=== PATIENT | female | born 1960 | race Two or more races ===

== ENCOUNTER → 2024-09-27 07:54 | Outpatient (CLI) | payer OTHER ==
[~2024-09-27 07:54] MED LIST: GILTUSS TR1 TAB.SR . PO; TERAPIA ALBUTEROL
[2024-09-27 08:52] LABS: HEMATOCRIT 38.3 % (36.0-45.00); HEMOGLOBIN 13.2 g/dL (12.0-15.00); MEAN CELL VOLUME 87.8 fL (80.00-100.00); MEAN CORPUSCULAR HEMOGLOBIN 30.2 pg (27.00-32.0); MEAN CORPUSCULAR HGB CONC 34.4 g/dl (32.0-36.0); RED BLOOD COUNT 4.36 M/uL (4.00-6.00); RED CELL DISTRIBUTION WIDTH 15.5 % (11.5-14.5)
[2024-09-27 08:59] LABS: PH,URINE 6.5 (5.0-8.0); URINE APPEARANCE Clear; URINE BILIRRUBIN Negative (NEGATIVE); URINE BLOOD Negative; URINE COLOR Yellow; URINE GLUCOSE Negative (NEGATIVE); URINE KETONE Negative (NEGATIVE); URINE LEUKOCYTE Negative; URINE NITRATE Negative; URINE PROTEIN Negative (NEGATIVE); URINE UROBILINOGEN 0.2 E.U./dl
[2024-09-27 09:03] LABS: PLATELET COUNT 94 K/uL (150-450); URINE BACTERIA 47.6 uL (0.0-1933); URINE EPITHELIAL CELLS 6.6 uL (0.0-38.8)
[2024-09-27 09:11] LABS: URINE RBC 1.9 uL (0.0-20.8); URINE WBC 0.9 uL (0.0-23.2)
[2024-09-27 10:17] LABS: ALBUMIN 3.6 gm/dL (3.4-5.0); BILIRUBIN TOTAL 0.99 mg/dL (0.3-1.2); CALCIUM 9.1 mg/dL (8.5-10.1); CHOL HDL RATIO 2.8 (0-5.0); CREATININE SERUM 0.62 mg/dL (0.55-1.02); FREE TRIODOTIRONINE 3.2 pg/ml (2.18-3.98); GFR 96.31; GLOBULINA 3.7 G/DL (2.4-3.5); POTASSIUM 4.27 mEq/L (3.5-5.1); T4 FREE 1.17 NG/ML (0.76-1.46); TOTAL PROTEIN 7.3 gm/dL (6.4-8.2); TSH 2.36 uIU/mL (0.358-3.74)
[2024-09-27 15:12] LABS: ob POSITIVE (NEGATIVE)
== END | disposition home or self-care (01) ==
LOC: LAB 07:54
PROVIDERS: ATTEND General Practice
DX: E78.2 Mixed hyperlipidemia (principal); R80.9 Proteinuria, unspecified; R30.0 Dysuria; E03.9 Hypothyroidism, unspecified; E11.69 Type 2 diabetes mellitus with other specified complication; E55.9 Vitamin D deficiency, unspecified; Z12.11 Encounter for screening for malignant neoplasm of colon

== ENCOUNTER 2025-01-20 08:32 | Outpatient (CLI) | payer OTHER ==
[2025-01-20 09:38] LABS: URINE APPEARANCE Clear; URINE BILIRRUBIN Negative (NEGATIVE); URINE BLOOD Negative; URINE COLOR Yellow; URINE GLUCOSE Negative (NEGATIVE); URINE KETONE Negative (NEGATIVE); URINE LEUKOCYTE Negative; URINE NITRATE Negative; URINE PROTEIN Negative (NEGATIVE); URINE UROBILINOGEN 0.2 E.U./dl
[2025-01-20 09:43] LABS: URINE BACTERIA 43.9 uL (0.0-1933); URINE EPITHELIAL CELLS 3.2 uL (0.0-38.8)
[2025-01-20 09:55] LABS: BASO % 0.7 % (0.1-1.2); EOS % 10.1 % (0.7-7.0); HEMATOCRIT 35.6 % (34.1-44.9); HEMOGLOBIN 11.5 g/dL (11.2-15.7); LYMPH # 1.04 (1.18-3.74); LYMPH % 34.9 % (19.3-53.1); MONO # 0.26 (0.24-0.82); MONO % 8.7 % (4.7-12.5); NEUT # 1.36 (1.56-6.13); NEUT % 45.6 % (34.0-71.1); RED CELL DISTRIBUTION WIDTH 19.3 % (11.6-14.4)
[2025-01-20 10:05] LABS: PLATELET COUNT 113 K/uL (163-369)
[2025-01-20 10:17] LABS: URINE RBC 0.5 uL (0.0-20.8); URINE WBC 0.6 uL (0.0-23.2)
[2025-01-20 10:42] LABS: ALBUMIN 3.6 gm/dL (3.4-5.0); BILIRUBIN TOTAL 0.97 mg/dL (0.3-1.2); BILIRUBIN,CONJUGATED 0.3 mg/dL (0.0-0.2); BILIRUBIN,UNCONJUGATED 0.67 mg/dL (0.0-0.6); CALCIUM 8.4 mg/dL (8.5-10.1); CHOL HDL RATIO 2.7 (0-5.0); CREATININE SERUM 0.66 mg/dL (0.55-1.02); GFR 89.6; POTASSIUM 4.48 mEq/L (3.5-5.1); TOTAL PROTEIN 7.4 gm/dL (6.4-8.2); TSH 1.83 uIU/mL (0.358-3.74)
[2025-01-22 07:11] LABS: hav igm Negative (Negative); hcv Non Reactive (Non Reactive); hep b c Negative (Negative); hep b s ag Negative (Negative)
== END 2025-01-20 08:33 | disposition home or self-care (01) ==
LOC: LAB 08:32
PROVIDERS: ATTEND General Practice
DX: E78.5 Hyperlipidemia, unspecified (principal); R30.0 Dysuria; E03.9 Hypothyroidism, unspecified; E11.69 Type 2 diabetes mellitus with other specified complication; R74.01 Elevation of levels of liver transaminase levels

== ENCOUNTER 2025-01-25 09:24 | Outpatient (CLI) | payer OTHER | END 2025-01-25 09:27 | disposition home or self-care (01) | LOC: TOM 09:24 | PROVIDERS: ATTEND General Practice | DX: R10.31 Right lower quadrant pain (principal); R10.11 Right upper quadrant pain | CPT/HCPCS: 74178; Q9965 ==

== ENCOUNTER 2025-05-14 08:35 | Outpatient (CLI) | payer OTHER ==
[2025-05-14 10:47] LABS: BASO % 1.0 % (0.1-1.2); EOS # 0.32 (0.04-0.54); EOS % 10.6 % (0.7-7.0); LYMPH # 0.76 (1.18-3.74); LYMPH % 25.1 % (19.3-53.1); MONO # 0.23 (0.24-0.82); MONO % 7.6 % (4.7-12.5); NEUT # 1.69 (1.56-6.13); NEUT % 55.7 % (34.0-71.1); RED CELL DISTRIBUTION WIDTH 21.7 % (11.6-14.4)
[2025-05-14 11:16] LABS: INR 1.19
[2025-05-14 11:30] LABS: ALT/SGPT 41.0 U/L (12-78); AST/SGOT 47.0 U/L (15-37); BILIRUBIN TOTAL 0.79 mg/dL (0.3-1.2); BUN CREA RATIO 14.0 (7.0-25.0); CREATININE SERUM 0.58 mg/dL (0.55-1.02); FE 18.0 ug/dl (50-170); GFR 104.01; GLOBULINA 4.2 G/DL (2.4-3.5); GLUCOSE FASTING 82.0 mg/dL (65-100); OSMOLALITY SERUM 275.0 MOSM/KG (275-295); TSH 2.06 uIU/mL (0.358-3.74)
[2025-05-17 07:07] LABS: HEPATITIS A ANTIBODY IGG Positive (Negative); HEPATITIS A IGM Negative (Negative); HEPATITIS B CORE IGG Negative (Negative); HEPATITIS B CORE IGM Negative (Negative); HEPATITIS B SURFACE ANTIBODY Non Reactive (.); HEPATITIS C VIRUS ANTIBODY Non Reactive (Non Reactive)
[2025-05-17 09:11] LABS: ALPHA FETO PROTEIN 4.0 ng/mL (0.0-9.2)
== END 2025-05-14 09:22 | disposition home or self-care (01) ==
LOC: LAB 08:35
DX: K74.60 Unspecified cirrhosis of liver (principal)

== ENCOUNTER 2025-05-18 19:15 | Inpatient (IN) | payer OTHER ==
[~2025-05-18] VITALS: Ht 157.5 cm; Wt 77.1 kg
[2025-05-18] MEDS ORDERED: LOSARTAN POTAS100 MG (19:53)
[2025-05-18] MEDS ORDERED: MORPHINE SULFATE 4 MG/ML VIAL IV ONE (20:15)
[2025-05-18] MEDS ORDERED: 0.9 % SODIUM CHLORIDE 1,000 ML IV SCH (20:15)
[2025-05-18 20:42] LABS: BASO % 0.5 % (0.1-1.2); EOS # 0.01 (0.04-0.54); EOS % 0.2 % (0.7-7.0); LYMPH # 0.87 (1.18-3.74); LYMPH % 13.7 % (19.3-53.1); MONO # 0.36 (0.24-0.82); MONO % 5.7 % (4.7-12.5); NEUT # 5.05 (1.56-6.13); NEUT % 79.6 % (34.0-71.1); RED CELL DISTRIBUTION WIDTH 23.0 % (11.6-14.4)
[2025-05-18 21:15] LABS: INR 1.36
[2025-05-18] MEDS ORDERED: PANTOPRAZOLE SODIUM 40 MG in 0.9 % SODIUM CHLORIDE 8 ML IV PUSH STA (21:16)
[2025-05-18 21:24] LABS: ALT/SGPT 35.0 U/L (12-78); AST/SGOT 37.0 U/L (15-37); BILIRUBIN TOTAL 0.72 mg/dL (0.3-1.2); BILIRUBIN,CONJUGATED 0.27 mg/dL (0.0-0.2); BUN CREA RATIO 41.0 (7.0-25.0); CREATININE SERUM 0.68 mg/dL (0.55-1.02); GFR 86.57; GLOBULINA 3.5 G/DL (2.4-3.5); GLUCOSE FASTING 132.0 mg/dL (65-100); OSMOLALITY SERUM 290.0 MOSM/KG (275-295)
[2025-05-18] MEDS ORDERED: OCTREOTIDE ACETATE 1,250 MCG in 0.9 % SODIUM CHLORIDE 250 ML IV SCH (21:30)
[2025-05-18] MEDS ORDERED: PANTOPRAZOLE SODIUM 80 MG in 0.9 % SODIUM CHLORIDE 100 ML IV SCH (21:30)
[2025-05-18 21:49] LABS: ABG PH 7.462 (7.35-7.45); ABG PO2 116.6 mmHg (80-100); BICARBONATE 20.6 mmol/l (23-25); o2 32 %
[2025-05-19] VITALS (8 sets, daily range): BP systolic 108–165; BP diastolic 59–94; O2SAT 99–100
[2025-05-19] MEDS ORDERED: CEFTRIAXONE SODIUM 2,000 MG in 0.9 % SODIUM CHLORIDE 100 ML IV SCH ×2 (00:12→09:00)
[2025-05-19] MEDS ORDERED: 0.9 % SODIUM CHLORIDE 1,000 ML IV SCH ×3 (00:15→07:30)
[2025-05-19] MEDS ORDERED: ONDANSETRON HCL 4 MG in 0.9 % SODIUM CHLORIDE 50 ML IV PRN ×2 (00:15→07:30)
[2025-05-19 02:12] LABS: URINE APPEARANCE Clear; URINE BILIRRUBIN Negative (NEGATIVE); URINE BLOOD Negative; URINE COLOR Yellow; URINE GLUCOSE Negative (NEGATIVE); URINE KETONE Trace (NEGATIVE); URINE LEUKOCYTE Negative; URINE NITRATE Negative; URINE PROTEIN Negative (NEGATIVE); URINE UROBILINOGEN 0.2 E.U./dl
[2025-05-19 02:15] LABS: URINE BACTERIA 4.7 uL (0.0-1933); URINE EPITHELIAL CELLS 3.5 uL (0.0-38.8); URINE RBC 3.0 uL (0.0-20.8); URINE WBC 2.4 uL (0.0-23.2)
[2025-05-19 02:20] LABS: URINE CAST 0.00 uL (0.0-1.40)
[2025-05-19] MEDS ORDERED: PANTOPRAZOLE SODIUM 80 MG in 0.9 % SODIUM CHLORIDE 100 ML IV SCH (07:30)
[2025-05-19] MEDS ORDERED: LABETALOL HCL 100 MG/20 ML ML IV PRN (10:15)
[2025-05-19] MEDS ORDERED: SODIUM CHLORIDE 0.45 % 1,000 ML IV SCH (10:15)
[2025-05-19] MEDS ORDERED: Cyanocobalamin/Mecobalamin 1 TAB.SL SL NR (10:30)
[2025-05-19] MEDS ORDERED: PHYTONADIONE 10 MG/ML AMPUL IM SCH (12:00)
[2025-05-19] MEDS ORDERED: SOD FERRIC GLUC COMPLX/SUCROSE 62.5 MG/5 ML AMPUL IV SCH (12:00)
[2025-05-19] MEDS ORDERED: ALBUMIN HUMAN-25 0.25GM/ML (50ML) VIAL IV SCH (13:00)
[2025-05-19] MEDS ORDERED: OCTREOTIDE ACETATE 1,250 MCG in 0.9 % SODIUM CHLORIDE 250 ML IV SCH (21:00)
[2025-05-20 04:00] VITALS: BP 145/67; O2SAT 100
[2025-05-20 07:45] VITALS: BP 156/78; O2SAT 92
[2025-05-20] MEDS ORDERED: Cyanocobalamin/Mecobalamin 1 TAB.SL SL SCH (09:00)
[2025-05-20 12:33] LABS: BASO % 0.9 % (0.1-1.2); EOS # 0.31 (0.04-0.54); EOS % 6.9 % (0.7-7.0); LYMPH # 0.75 (1.18-3.74); LYMPH % 16.6 % (19.3-53.1); MONO # 0.34 (0.24-0.82); MONO % 7.5 % (4.7-12.5); NEUT # 3.05 (1.56-6.13); NEUT % 67.7 % (34.0-71.1); RED CELL DISTRIBUTION WIDTH 23.8 % (11.6-14.4)
[2025-05-20 13:43] LABS: ALT/SGPT 31.0 U/L (12-78); AST/SGOT 42.0 U/L (15-37); BILIRUBIN TOTAL 1.45 mg/dL (0.3-1.2); BILIRUBIN,CONJUGATED 0.47 mg/dL (0.0-0.2); BUN CREA RATIO 32.0 (7.0-25.0); CREATININE SERUM 0.68 mg/dL (0.55-1.02); GFR 86.57; GLOBULINA 3.1 G/DL (2.4-3.5); GLUCOSE FASTING 107.0 mg/dL (65-100); OSMOLALITY SERUM 292.0 MOSM/KG (275-295)
[2025-05-20] MEDS ORDERED: PHYTONADIONE 10 MG/ML AMPUL IM SCH (14:00)
[2025-05-20 14:31] LABS: TSH 0.22 uIU/mL (0.358-3.74)
[2025-05-20 14:40] VITALS: BP 133/69; O2SAT 95
[2025-05-20 15:53] VITALS: BP 132/49; O2SAT 97
[2025-05-20] MEDS ORDERED: AMINO ACIDS 1 EACH TABLET PO SCH (17:00)
[2025-05-20 20:00] VITALS: BP 147/75; O2SAT 97
[2025-05-20] MEDS ORDERED: SODIUM CL 0.9% 250 ML IV.SOLN ONE (20:35)
[2025-05-20] MEDS ORDERED: PANTOPRAZOLE SODIUM 40 MG/VIAL VIAL ONE (20:55)
[2025-05-20 23:53] VITALS: BP 157/72; O2SAT 96
[2025-05-21] MEDS ORDERED: PANTOPRAZOLE SODIUM 40 MG/VIAL VIAL ONE (00:46)
[2025-05-21 07:07] VITALS: BP 161/75; O2SAT 96
[2025-05-21 12:00] VITALS: BP 143/68; O2SAT 95
[2025-05-21 15:37] VITALS: BP 150/70; O2SAT 97
[2025-05-21 20:00] VITALS: BP 169/77; O2SAT 100
[2025-05-21] MEDS ORDERED: SODIUM CL 0.9% 250 ML IV.SOLN ONE ×2 (21:59→22:00)
[2025-05-22] VITALS (7 sets, daily range): BP systolic 132–164; BP diastolic 58–87; O2SAT 95–100
[2025-05-22] MEDS ORDERED: ACETAMINOPHEN 500 MG GEL..CAP PO PRN (10:30)
[2025-05-22] MEDS ORDERED: MAGNESIUM HYDROXIDE 30 ML BLIST.PACK PO NR (14:30)
[2025-05-22] MEDS ORDERED: LACTULOSE 20 G/30 ML BLIST.PACK PO NR (14:30)
[2025-05-22] MEDS ORDERED: MINERAL OIL 30 ML BLIST.PACK PO NR (14:30)
[2025-05-22 19:18] LABS: ob POSITIVE (NEGATIVE)
[2025-05-23] VITALS (7 sets, daily range): BP systolic 126–158; BP diastolic 69–97; O2SAT 96–100
[2025-05-23 06:50] LABS: BASO % 0.8 % (0.1-1.2); EOS # 0.37 (0.04-0.54); EOS % 10.3 % (0.7-7.0); LYMPH # 0.71 (1.18-3.74); LYMPH % 19.7 % (19.3-53.1); MONO # 0.37 (0.24-0.82); MONO % 10.3 % (4.7-12.5); NEUT # 2.12 (1.56-6.13); NEUT % 58.9 % (34.0-71.1)
[2025-05-23 07:05] LABS: RED CELL DISTRIBUTION WIDTH 26.9 % (11.6-14.4)
[2025-05-23 07:22] LABS: INR 1.33
[2025-05-23 07:24] LABS: ALT/SGPT 24.0 U/L (12-78); AST/SGOT 29.0 U/L (15-37); BILIRUBIN TOTAL 0.97 mg/dL (0.3-1.2); BUN CREA RATIO 17.0 (7.0-25.0); CREATININE SERUM 0.58 mg/dL (0.55-1.02); GFR 104.01; GLOBULINA 2.8 G/DL (2.4-3.5); GLUCOSE FASTING 94.0 mg/dL (65-100); OSMOLALITY SERUM 287.0 MOSM/KG (275-295)
[2025-05-23] MEDS ORDERED: CHLORHEXIDINE GLUCONATE 120 ML BOTTLE TOP ONE (08:54)
[2025-05-23] MEDS ORDERED: PROPRANOLOL HCL 10 MG TABLET PO SCH (09:00)
[2025-05-23 21:16] LABS: GLU PERITONEAL FLUID 116.0 mg/dl; LDH PERITONEAL FLUID 64.0 U/L; TP PERITONEAL FLUID 1.6 g/dl
[2025-05-24 00:36] VITALS: BP 136/74; O2SAT 100
[2025-05-24 10:35] LABS: ALPHA FETO PROTEIN 3.2 ng/mL (0.0-9.2); hav igm Negative (Negative); hep b c Negative (Negative); hep b s ag Negative (Negative)
[2025-05-24 17:17] VITALS: BP 115/57; O2SAT 98
[2025-05-25 00:52] VITALS: BP 131/67; O2SAT 95
[2025-05-25 07:57] LABS: BASO % 1.1 % (0.1-1.2); EOS # 0.55 (0.04-0.54); EOS % 9.8 % (0.7-7.0); LYMPH # 1.24 (1.18-3.74); LYMPH % 22.2 % (19.3-53.1); MONO # 0.57 (0.24-0.82); MONO % 10.2 % (4.7-12.5); NEUT # 3.15 (1.56-6.13); NEUT % 56.3 % (34.0-71.1)
[2025-05-25 08:02] LABS: RED CELL DISTRIBUTION WIDTH 28.9 % (11.6-14.4)
[2025-05-25 09:01] LABS: BUN CREA RATIO 18.0 (7.0-25.0); CREATININE SERUM 0.49 mg/dL (0.55-1.02); GFR 126.35; GLUCOSE FASTING 76.0 mg/dL (65-100); OSMOLALITY SERUM 282.0 MOSM/KG (275-295)
[2025-05-25] MEDS ORDERED: PROPRANOLOL HCL10 MG PO (11:32)
[2025-05-25] MEDS ORDERED: Neurin-Sl Tablet Sl SL (11:33)
[2025-05-25] MEDS ORDERED: ENULOSE10 GM/15 M PO (11:33)
[2025-05-25] MEDS ORDERED: PRE PROTEIN1 EACH PO (11:33)
[2025-05-25] MEDS ORDERED: ATACAND16 MG PO (11:34)
[2025-05-25] MEDS ORDERED: VITAMIN K100 MCG PO (11:34)
[2025-05-25] MEDS ORDERED: CEFDINIR300 MG PO (11:34)
[2025-05-25] MEDS ORDERED: URSODIOL200 MG PO (11:40)
[2025-05-25] MEDS ORDERED: ACTOS15 MG PO (11:40)
[2025-05-25] MEDS ORDERED: CARAFATE1 GM/10 ML PO (11:42)
[2025-05-25 13:12] LABS: ANTI MITOCHONDRIAL ANTIBODIES < 20.0 Units (0.0-20.0); SMOOTH MUSCLE ANTIBODY 8 Units (0-19)
== END 2025-05-25 15:53 | disposition home or self-care (01) | DRG 378 ==
LOC: ER 19:15 → ICU 05-19 00:49 → ICU-2 05-19 01:11 → ICU 05-19 03:42 → SURH 05-23 17:10
PROVIDERS: General Practice; Internal Medicine; Internal Medicine Infectious Disease; ADMIT Internal Medicine; ATTEND Internal Medicine
PROC: BW40ZZZ Ultrasonography of Abdomen (ICD-10-PCS; 2025-05-19)
PROC: BW21YZZ Computerized Tomography (CT Scan) of Abdomen and Pelvis using Other Contrast (ICD-10-PCS; 2025-05-19)
PROC: B24BYZZ Ultrasonography of Heart with Aorta using Other Contrast (ICD-10-PCS; 2025-05-19)
PROC: 30233N1 Transfusion of Nonautologous Red Blood Cells into Peripheral Vein, Percutaneous Approach (ICD-10-PCS; 2025-05-19)
PROC: 0W9G3ZZ Drainage of Peritoneal Cavity, Percutaneous Approach (ICD-10-PCS; principal; 2025-05-23)
DX: K92.0 Hematemesis (principal); R18.8 Other ascites; D64.9 Anemia, unspecified; K74.60 Unspecified cirrhosis of liver; D69.6 Thrombocytopenia, unspecified

== ENCOUNTER 2025-06-13 09:27 | Outpatient (CLI) | payer OTHER ==
[~2025-06-13 09:27] MED LIST changes: +ACTOS15 MG PO; +ATACAND16 MG PO; +CARAFATE1 GM/10 ML PO; +CEFDINIR300 MG PO; +ENULOSE10 GM/15 M PO; +LOSARTAN POTAS100 MG; +Neurin-Sl Tablet Sl SL; +PRE PROTEIN1 EACH PO; +PROPRANOLOL HCL10 MG PO; +URSODIOL200 MG PO; +VITAMIN K100 MCG PO
[2025-06-13 11:19] LABS: BASO % 1.3 % (0.1-1.2); EOS # 0.47 (0.04-0.54); LYMPH # 0.79 (1.18-3.74); LYMPH % 25.7 % (19.3-53.1); MONO # 0.29 (0.24-0.82); MONO % 9.4 % (4.7-12.5); NEUT # 1.48 (1.56-6.13); NEUT % 48.3 % (34.0-71.1)
[2025-06-13 11:21] LABS: EOS % 15.3 % (0.7-7.0); RED CELL DISTRIBUTION WIDTH 27.7 % (11.6-14.4)
[2025-06-13 11:47] LABS: INR 1.19
[2025-06-13 11:56] LABS: ALT/SGPT 62.0 U/L (12-78); AST/SGOT 68.0 U/L (15-37); BILIRUBIN TOTAL 1.07 mg/dL (0.3-1.2); BUN CREA RATIO 16.0 (7.0-25.0); CREATININE SERUM 0.55 mg/dL (0.55-1.02); GFR 110.59; GLOBULINA 4.1 G/DL (2.4-3.5); GLUCOSE FASTING 88.0 mg/dL (65-100); OSMOLALITY SERUM 283.0 MOSM/KG (275-295)
== END 2025-06-13 09:35 | disposition home or self-care (01) ==
LOC: LAB 09:27
DX: K76.0 Fatty (change of) liver, not elsewhere classified (principal); K74.60 Unspecified cirrhosis of liver; Z13.29 Encounter for screening for other suspected endocrine disorder

== ENCOUNTER 2025-07-11 10:31 | Outpatient (CLI) | payer OTHER | END 2025-07-11 10:33 | disposition home or self-care (01) | LOC: SONOGRAMA 10:31 | DX: R10.31 Right lower quadrant pain (principal) ==